=== PATIENT | female | born 1990 | race Caucasian/White ===

== ENCOUNTER 2018-10-19 01:03 | Emergency (ER) | payer MEDICAID ==
[~2018-10-19] VITALS: Ht 167.6 cm; Wt 97.2 kg
[~2018-10-19 01:03] MED LIST: NO HOME MEDS; PROM25TA14 PO
[2018-10-19 01:08] VITALS: BP 123/71
[2018-10-19 01:30] LABS: URINE HCG NEGATIVE (NEG)
[2018-10-19 01:48] LABS: CLARITY,URINE CLOUDY (Clear); COLOR,URINE YELLOW (Yellow); GLUCOSE, URINE NEGATIVE (Neg); KETONES,URINE TRACE mg/dl (Neg); LEUKOCYTE ESTERASE ,URINE MODERATE (Neg); NITRITES, URINE NEGATIVE (Neg); OCCULT BLOOD,URINE LARGE (Neg); PH,URINE 5.5 (4.8-8.0); PROTEIN,URINE 100 mg/dl (Neg); UROBILINOGEN,URINE 0.2 E.U/dL (0.2-1.0)
[2018-10-19 01:50] LABS: UA COLLECTION TYPE NON-SPECIFIED
[2018-10-19 01:54] LABS: SQUAMOUS EPITHELIAL CELL,UR MODERATE /LPF (FEW); WBC,URINE TNTC /HPF (0-4)
[2018-10-19 01:55] LABS: BACTERIA,URINE 2+ /HPF (Neg); MUCUS STRANDS MANY /LPF (Neg); RBC,URINE 20-50 /HPF (0-2)
[2018-10-19] MEDS ORDERED: cephalexin 250mg capsule PO ONE (02:25)
[2018-10-19] MEDS ORDERED: PHEN-786 PO (02:27)
[2018-10-19] MEDS ORDERED: CEPH500C5 PO (02:27)
[2018-10-19] MEDS ORDERED: ibuprofen tablet 400 MG TABLET PO ONE (02:30)
[2018-10-19] MEDS ORDERED: phenazopyridine 100mg tablet PO ONE (02:30)
== END 2018-10-19 02:43 | disposition home or self-care (01) ==
LOC: ER 01:04
DX: N39.0 Urinary tract infection, site not specified (principal); Z79.899 Other long term (current) drug therapy
CPT/HCPCS: 81001; 81025; 87077; 87088; 87186; 99284

== ENCOUNTER 2019-05-19 11:32 | Emergency (ER) | payer MEDICAID ==
[~2019-05-19] VITALS: Ht 167.6 cm; Wt 97.0 kg
[~2019-05-19 11:32] MED LIST changes: +CEPH500C5 PO; +PHEN-786 PO
[2019-05-19 11:43] VITALS: BP 129/80
[2019-05-19] MEDS ORDERED: AMOX-422 PO (12:13)
== END 2019-05-19 12:25 | disposition home or self-care (01) ==
LOC: ER 11:33
DX: J32.9 Chronic sinusitis, unspecified (principal); Z79.899 Other long term (current) drug therapy
CPT/HCPCS: 99283

== ENCOUNTER → 2019-12-24 | Emergency (ER) | payer MEDICAID ==
[~2019-12-24] VITALS: Ht 165.1 cm; Wt 98.6 kg
[~2019-12-24] MED LIST changes: -CEPH500C5 PO; +ONDA8TAB6 PO; +diphenhydrAMINE 50 mg/ml inj IV ONE; +haloperidol lactate 5mg/ml inj IM ONE; +morphine 4 MG/ML inj SYRINge IV PRN; +normal saline 1000ML IV soln IVB ONE; +ondansetron/PF 4mg/2ml inj IV ONE
[2019-12-24] MEDS: ketorolac trometh. 30mg/ml inj. IV ONE ×2 (07:01→07:35)
--- NOTE | 2019-12-24 07:23 | NUR ---
REFUSED MORPHINE,DR. LAW MADE AWARE.URINE AND BLOOD SAMPLE COLLECTED.
[2019-12-24 07:34] LABS: BASOPHILS # (AUTO) 0.1 X10'3 (0-0.2); BASOPHILS % (AUTO) 0.9 % (0-1); EOSINOPHILS # (AUTO) 0.1 X10'3 (0-0.9); EOSINOPHILS % (AUTO) 0.7 % (0-6); HEMATOCRIT 38.7 % (35.0-45.0); HEMOGLOBIN 12.9 g/dl (12.0-16.0); LYMPHOCYTES # (AUTO) 1.3 X10'3 (1.1-4.8); LYMPHOCYTES % (AUTO) 9.6 % (21-51); MEAN CORPUSCULAR HEMOGLOBIN 28.6 PG (27.0-31.0); MEAN CORPUSCULAR HGB CONC 33.4 g/dL (33.0-36.5); MEAN CORPUSCULAR VOLUME 85.7 FL (78-98); MEAN PLATELET VOLUME 8.5 FL (7.4-10.4); MONOCYTES # (AUTO) 0.7 X10'3 (0-0.9); MONOCYTES % (AUTO) 5.1 % (2-12); NEUTROPHILS % (AUTO) 83.7 % (42-75); PLATELET COUNT 237 X10'3 (140-440); RED BLOOD COUNT 4.52 X10'6 (4.20-5.60); RED CELL DISTRIBUTION WIDTH 13.1 % (11.5-14.5); WHITE BLOOD COUNT 13.2 X10'3 (4.5-11.0)
[2019-12-24 07:35] LABS: CLARITY,URINE SLIGHTLY CLOUDY (Clear); COLOR,URINE YELLOW (Yellow); GLUCOSE, URINE NEGATIVE (Neg); KETONES,URINE NEGATIVE (Neg); LEUKOCYTE ESTERASE ,URINE TRACE (Neg); NITRITES, URINE NEGATIVE (Neg); OCCULT BLOOD,URINE SMALL (Neg); PROTEIN,URINE NEGATIVE (Neg); UROBILINOGEN,URINE 0.2 E.U/dL (0.2-1.0)
[2019-12-24 07:36] LABS: URINE HCG NEGATIVE (NEG)
[2019-12-24 07:43] LABS: ALANINE AMINOTRANSFERASE 15 U/L (12-78); ALBUMIN 4.1 G/DL (3.4-5.0); ALBUMIN/GLOBULIN RATIO 1.1 (1.1-1.5); ALKALINE PHOSPHATASE 71 IU/L (46-116); ANION GAP 9 (8-16); ASPARTATE AMINO TRANSFERASE 12 U/L (10-37); BILIRUBIN,TOTAL 0.5 MG/DL (0.1-1.0); BLOOD UREA NITROGEN 13 MG/DL (7-18); BUN/CREATININE RATIO 17.1 (6.6-38.0); CHLORIDE 106 MMOL/L (99-107); CREATININE 0.76 MG/DL (0.40-0.90); GLUCOSE 97 MG/DL (70-104); LIPASE 84 U/L (73-393); POTASSIUM 3.6 MMOL/L (3.5-5.1); SODIUM 139 MMOL/L (135-145); TOTAL PROTEIN 7.8 G/DL (6.4-8.2); eGFR > 90 ML/MIN
[2019-12-24 07:44] LABS: UA COLLECTION TYPE CLN CATCH MIDSTREAM
[2019-12-24 07:46] LABS: MUCUS STRANDS MANY /LPF (Neg); SQUAMOUS EPITHELIAL CELL,UR MANY /LPF (FEW)
[2019-12-24 07:47] LABS: BACTERIA,URINE 2+ /HPF (Neg)
[2019-12-24 08:57] VITALS: BP 129/98
== END | disposition home or self-care (01) ==
LOC: ER 06:37
DX: R11.2 Nausea with vomiting, unspecified (principal); R10.13 Epigastric pain; Z87.440 Personal history of urinary (tract) infections; Z79.899 Other long term (current) drug therapy
CPT/HCPCS: 80053; 81001; 81025; 83690; 85025; 96361; 96372; 96374; 96375; 99284; J1200; J1630; J1885; J2405; J7030

== ENCOUNTER 2020-05-21 06:50 | Emergency (ER) | payer MEDICAID ==
[~2020-05-21] VITALS: Ht 167.6 cm; Wt 91.4 kg
[~2020-05-21 06:50] MED LIST changes: -diphenhydrAMINE 50 mg/ml inj IV ONE; -haloperidol lactate 5mg/ml inj IM ONE; -morphine 4 MG/ML inj SYRINge IV PRN; -normal saline 1000ML IV soln IVB ONE; -ondansetron/PF 4mg/2ml inj IV ONE
[2020-05-21] MEDS ORDERED: ondansetron/PF 4mg/2ml inj IV ONE (07:20)
[2020-05-21] MEDS ORDERED: normal saline 1000ML IV soln IVB ONE (07:20)
[2020-05-21] MEDS ORDERED: SUMAtriptan succ. 6 MG/0.5ml vial SQ ONE (07:20)
[2020-05-21] MEDS ORDERED: ketorolac tromethamine 15mg/ml inj. IV ONE (08:25)
[2020-05-21] MEDS ORDERED: morphine 4 MG/ML inj SYRINge IV ONE (08:25)
[2020-05-21] MEDS ORDERED: LORazepam 2 mg/ml vial IV ONE (08:25)
[2020-05-21 10:40] VITALS: BP 107/70
== END 2020-05-21 10:49 | disposition home or self-care (01) ==
LOC: ER 06:50
DX: R51.9 Headache, unspecified (principal); R11.0 Nausea; H53.149 Visual discomfort, unspecified; Z79.899 Other long term (current) drug therapy
CPT/HCPCS: 96361; 96372; 96374; 96375; 99284; J1885; J2060; J2270; J2405; J7030; J3030

== ENCOUNTER 2023-04-01 07:16 | Emergency (ER) | payer MEDICAID ==
[~2023-04-01] VITALS: Ht 165.1 cm; Wt 89.2 kg
[2023-04-01 07:33] VITALS: TEMP 98.1
[2023-04-01 08:40] LABS: BASOPHILS % (AUTO) 0.3 % (0-1); EOSINOPHILS # (AUTO) 0.1 X10'3 (0-0.9); EOSINOPHILS % (AUTO) 0.8 % (0-6); HEMATOCRIT 40.4 % (35.0-45.0); HEMOGLOBIN 13.4 g/dl (12.0-16.0); LYMPHOCYTES # (AUTO) 0.3 X10'3 (1.1-4.8); LYMPHOCYTES % (AUTO) 3.7 % (21-51); MEAN CORPUSCULAR HEMOGLOBIN 30.2 PG (27.0-31.0); MEAN CORPUSCULAR HGB CONC 33.3 g/dL (33.0-36.5); MEAN CORPUSCULAR VOLUME 90.9 FL (78-98); MEAN PLATELET VOLUME 8.4 FL (7.4-10.4); MONOCYTES # (AUTO) 0.2 X10'3 (0-0.9); MONOCYTES % (AUTO) 2.2 % (2-12); NEUTROPHILS # (AUTO) 8.8 X10'3 (1.8-7.7); PLATELET COUNT 228 X10'3 (140-440); RED BLOOD COUNT 4.44 X10'6 (4.20-5.60); RED CELL DISTRIBUTION WIDTH 13.1 % (11.5-14.5); WHITE BLOOD COUNT 9.5 X10'3 (4.5-11.0)
[2023-04-01 08:59] LABS: ALANINE AMINOTRANSFERASE 12 U/L (12-78); ALBUMIN/GLOBULIN RATIO 1.1 (1.1-1.5); ALKALINE PHOSPHATASE 65 IU/L (46-116); ANION GAP 13 (8-16); ASPARTATE AMINO TRANSFERASE 23 U/L (10-37); BILIRUBIN,TOTAL 0.9 MG/DL (0.1-1.0); BLOOD UREA NITROGEN 13 MG/DL (7-18); BUN/CREATININE RATIO 17.8 (10.0-20.0); CALCIUM 8.7 MG/DL (8.5-10.1); CHLORIDE 106 MMOL/L (99-107); CREATININE 0.73 MG/DL (0.40-0.90); GLUCOSE 103 MG/DL (70-104); LIPASE 14 U/L (16-77); POTASSIUM 3.4 MMOL/L (3.5-5.1); SODIUM 139 MMOL/L (135-145); TOTAL CARBON DIOXIDE 19.9 MMOL/L (24-32); TOTAL PROTEIN 7.7 G/DL (6.4-8.2); eCRCL 100 ML/MIN; eGFR > 90 ML/MIN
[2023-04-01 09:42] LABS: BILIRUBIN,URINE NEGATIVE (Neg); CLARITY,URINE SLIGHTLY CLOUDY (Clear); COLOR,URINE YELLOW (Yellow); GLUCOSE, URINE NEGATIVE (Neg); KETONES,URINE TRACE mg/dl (Neg); LEUKOCYTE ESTERASE ,URINE NEGATIVE (Neg); NITRITES, URINE NEGATIVE (Neg); OCCULT BLOOD,URINE TRACE-INTACT (Neg); PH,URINE 8.5 (4.8-8.0); PROTEIN,URINE NEGATIVE (Neg); UROBILINOGEN,URINE 0.2 E.U/dL (0.2-1.0)
[2023-04-01 09:43] LABS: URINE HCG NEGATIVE (NEG)
[2023-04-01 09:47] LABS: UA COLLECTION TYPE CLN CATCH MIDSTREAM
[2023-04-01 09:48] LABS: MUCUS STRANDS MANY /LPF (Neg); SQUAMOUS EPITHELIAL CELL,UR MANY /LPF (FEW)
[2023-04-01 09:49] LABS: BACTERIA,URINE 2+ /HPF (Neg); WBC,URINE 0-4 /HPF (0-4)
[2023-04-01] MEDS ORDERED: iohexol 300mg/ml 100ml inj. ONE (10:44)
[2023-04-01] MEDS ORDERED: ondansetron/PF 4mg/2ml inj IV ONE (12:15)
[2023-04-01 13:03] VITALS: BP 107/66; PULSE 95; RESP 16; O2SAT 99
[2023-04-01] MEDS ORDERED: PHEN16.234 PO (13:20)
== END 2023-04-01 13:34 | disposition home or self-care (01) ==
LOC: ER 07:17
DX: R10.32 Left lower quadrant pain (principal); R11.2 Nausea with vomiting, unspecified; Z87.448 Personal history of other diseases of urinary system; Z79.899 Other long term (current) drug therapy
CPT/HCPCS: 36415; 74177; 76856; 80053; 81001; 81025; 83690; 85025; 93976; 96374; 99285; J2405; J3490; Q9967

== ENCOUNTER → 2023-10-08 | Outpatient (CLI) | payer MEDICAID ==
[~2023-10-08] MED LIST changes: +PHEN16.234 PO
== END | disposition home or self-care (01) ==
LOC: RAD 15:57
PROVIDERS: ATTEND Nurse Practitioner Primary Care
DX: M54.50 Low back pain, unspecified (principal)
CPT/HCPCS: 72100

== ENCOUNTER 2024-07-31 09:54 | Emergency (ER) | payer MEDICAID ==
[~2024-07-31] VITALS: Ht 167.6 cm; Wt 98.0 kg
[2024-07-31 09:56] VITALS: TEMP 97.4
[2024-07-31 10:48] LABS: BASOPHILS % (AUTO) 0.4 % (0-1); EOSINOPHILS % (AUTO) 0.5 % (0-6); HEMATOCRIT 39.8 % (35.0-45.0); HEMOGLOBIN 13.2 g/dl (12.0-16.0); LYMPHOCYTES # (AUTO) 1.1 X10'3 (1.1-4.8); LYMPHOCYTES % (AUTO) 12.4 % (21-51); MEAN CORPUSCULAR HEMOGLOBIN 28.8 PG (27.0-31.0); MEAN CORPUSCULAR HGB CONC 33.2 g/dL (33.0-36.5); MEAN CORPUSCULAR VOLUME 86.7 FL (78-98); MEAN PLATELET VOLUME 8.2 FL (7.4-10.4); MONOCYTES # (AUTO) 0.4 X10'3 (0-0.9); MONOCYTES % (AUTO) 4.8 % (2-12); NEUTROPHILS # (AUTO) 7.3 X10'3 (1.8-7.7); NEUTROPHILS % (AUTO) 81.9 % (42-75); PLATELET COUNT 277 X10'3 (140-440); RED BLOOD COUNT 4.59 X10'6 (4.20-5.60); RED CELL DISTRIBUTION WIDTH 13.2 % (11.5-14.5)
[2024-07-31 11:06] LABS: ALANINE AMINOTRANSFERASE 12 U/L (12-78); ALBUMIN 4.3 G/DL (3.4-5.0); ALBUMIN/GLOBULIN RATIO 1.3 (1.1-1.5); ALKALINE PHOSPHATASE 74 IU/L (46-116); ANION GAP 12 (8-16); ASPARTATE AMINO TRANSFERASE 14 U/L (10-37); BILIRUBIN,TOTAL 0.6 MG/DL (0.1-1.0); BLOOD UREA NITROGEN 11 MG/DL (7-18); BUN/CREATININE RATIO 13.3 (10.0-20.0); CALCIUM 8.9 MG/DL (8.5-10.1); CHLORIDE 107 MMOL/L (99-107); CREATININE 0.83 MG/DL (0.40-0.90); GLUCOSE 88 MG/DL (70-104); LIPASE 12 U/L (16-77); POTASSIUM 3.4 MMOL/L (3.5-5.1); SODIUM 141 MMOL/L (135-145); TOTAL PROTEIN 7.6 G/DL (6.4-8.2); eCRCL 91 ML/MIN; eGFR 80 ML/MIN
[2024-07-31] MEDS: ondansetron/PF 4mg/2ml inj IV ONE ×2 (11:23→12:25)
[2024-07-31] MEDS: normal saline 1000ml 1,000 ML IV ONE (11:23)
[2024-07-31] MEDS: morphine 2 MG/ML inj. syringe IV ONE (11:24)
[2024-07-31 13:03] LABS: BILIRUBIN,URINE NEGATIVE (Neg); CLARITY,URINE CLEAR (Clear); COLOR,URINE YELLOW (Yellow); GLUCOSE, URINE NEGATIVE (Neg); KETONES,URINE 15 mg/dl (Neg); LEUKOCYTE ESTERASE ,URINE NEGATIVE (Neg); NITRITES, URINE NEGATIVE (Neg); OCCULT BLOOD,URINE TRACE-INTACT (Neg); PROTEIN,URINE NEGATIVE (Neg); URINE HCG NEGATIVE (NEG); UROBILINOGEN,URINE 0.2 E.U/dL (0.2-1.0)
[2024-07-31 13:04] LABS: UA COLLECTION TYPE VOIDED
[2024-07-31 13:09] LABS: BACTERIA,URINE FEW /HPF (Neg); MUCUS STRANDS FEW /LPF (Neg); RBC,URINE 0-2 /HPF (0-2); SQUAMOUS EPITHELIAL CELL,UR NONE SEEN /LPF (FEW); TRANSITIONAL EPI CELLS,URINE FEW /HPF; WBC,URINE 0-4 /HPF (0-4)
[2024-07-31] MEDS ORDERED: ONDA-243 PO (13:14)
[2024-07-31 13:33] VITALS: BP 110/75; PULSE 72; RESP 17; O2SAT 98
== END 2024-07-31 13:35 | disposition home or self-care (01) ==
LOC: ER 09:54
DX: R11.10 Vomiting, unspecified (principal); R10.84 Generalized abdominal pain; Z79.899 Other long term (current) drug therapy
CPT/HCPCS: 36415; 80053; 81001; 81025; 83690; 85025; 96361; 96374; 96375; 96376; 99284; J2270; J2405; J7030